=== PATIENT | male | born 1990 | race Hispanic/Latino ===

== ENCOUNTER 2017-01-07 14:36 | Emergency (ER) | payer BC ==
[2017-01-07 14:45] VITALS: BP 124/83; PULSE 75; RESP 20; TEMP 97.8; O2SAT 100
--- NOTE | 2017-01-07 15:03 | ED PDOC ---
Upper Extremity Pain/Injury Time Seen by Provider: 01/07/17 14:46 Chief Complaint (Nursing): Upper Extremity Problem/Injury Chief Complaint (Provider): Upper Extremity Problem/Injury History Per: Patient History/Exam Limitations: no limitations Onset/Duration Of Symptoms: Hrs Additional Complaint(s): Stephon Lunsford is a 26 year old male with no past medical history who presents to the ED with a chief complaint of a left elbow injury. Reports painful range of motion on the arm. Patient states he was playing basketball when he fell on his left elbow. Denies any shoulder pain, finger pain, numbness, or tingling. Past Medical History Reviewed: Historical Data, Nursing Documentation, Vital Signs Vital Signs: Last Vital Signs Temp 97.8 F 01/07/17 14:39 Pulse 75 01/07/17 14:39 Resp 20 01/07/17 14:39 BP 124/83 01/07/17 14:39 Pulse Ox 100 01/07/17 14:39 - Medical History PMH: No Chronic Diseases - Surgical History Surgical History: No Surg Hx - Family History Family History: States: Unknown Family Hx - Home Medications Home Medications: Ambulatory Orders Medication Instructions Recorded Cyclobenzaprine [Cyclobenzaprine 10 mg PO BID #14 tab 01/07/17 HCl] Ibuprofen [Motrin] 400 mg PO Q6 #30 tab 01/07/17 - Allergies Allergies/Adverse Reactions: Allergies Allergy/AdvReac Type Severity Reaction Status Date / Time No Known Allergies Allergy Verified 08/26/16 15:42 Review of Systems ROS Statement: Except As Marked, All Systems Reviewed And Found Negative Musculoskeletal: Negative for: Shoulder Pain, Hand Pain (No finger pain), Other (No numbness or tingling on elbow or arm) Physical Exam - Reviewed Nursing Documentation Reviewed: Yes Vital Signs Reviewed: Yes - Physical Exam Appears: Positive for: Well, Non-toxic, No Acute Distress Head Exam: Positive for: ATRAUMATIC, NORMAL INSPECTION, NORMOCEPHALIC Skin: Positive for: Normal Color Eye Exam: Positive for: Normal appearance ENT: Positive for: Normal ENT Inspection Neck: Positive for: Normal Cardiovascular/Chest: Positive for: Regular Rate, Rhythm. Negative for: Murmur , Tachycardia Respiratory: Positive for: Normal Breath Sounds. Negative for: Wheezing, Respiratory Distress Extremity: Positive for: Normal ROM (Full range of motion at the elbow and wrist.), Tenderness (Tenderness isolated to the volar aspect proximal to the elbow of the forearm and the olecranon. Point tenderness to the olecranon.), Other (Axillary nerves intact. Neurovascular intact. Good pronation. Good supination.) Neurologic/Psych: Positive for: Alert, Oriented - ECG O2 Sat by Pulse Oximetry: 100 (RA) Pulse Ox Interpretation: Normal Medical Decision Making Medical Decision Makin: Initial Impression: 26 year old male with injury to the left elbow. Initial Plan: * X-ray * Re-Evaluation Patient declines pain control. 15:49: pt asked for pain control given motrin. Pt with negative fx on xray given sling advised if pain continues to f./u with orthopedics for CT valentin. Scribe Attestation: Documented by Berto Norman acting as a scribe for Yareli Talavera PA-C. Provider Scribe Attestation: All medical record entries made by the Scribe were at my direction and personally dictated by me. I have reviewed the chart and agree that the record accurately reflects my personal performance of the history, physical exam, medical decision making, and the department course for this patient. I have also personally directed, reviewed, and agree with the discharge instructions and disposition. Disposition - Clinical Impression Clinical Impression: Elbow injury - Patient ED Disposition Is Patient to be Admitted: No Counseled Patient/Family Regarding: Studies Performed, Diagnosis, Need For Followup, Rx Given - Disposition Referrals: [facility] [Outside] Disposition: Routine/Home Disposition Time: 15:50 Condition: STABLE Prescriptions: Cyclobenzaprine [Cyclobenzaprine HCl] 10 mg PO BID #14 tab Ibuprofen [Motrin] 400 mg PO Q6 #30 tab Instructions: Elbow Sprain (ED)
--- NOTE | 2017-01-07 15:42 | RAD ---
PROCEDURE: Radiographs of the left elbow. HISTORY: elbow pain COMPARISON: None available. FINDINGS: BONES: No acute displaced fracture. JOINTS: No dislocation. SOFT TISSUES: Mild soft tissue swelling. No evidence of radiopaque foreign body. JOINT EFFUSION: No significant joint effusion. OTHER FINDINGS: None IMPRESSION: Mild soft tissue swelling. No acute displaced fracture, dislocation, or significant joint effusion identified. If high clinical index of suspicion for occult fracture suggest cross-sectional imaging. Otherwise if symptoms persist, or if there is continued clinical concern, x-ray follow-up in 7-10 days should be considered.
== END 2017-01-07 16:04 | disposition home or self-care (01) ==
LOC: H.ER 14:36
DX: S59.902A Unspecified injury of left elbow, initial encounter (principal); W19.XXXA Unspecified fall, initial encounter; Y92.310 Basketball court as the place of occurrence of the external cause